=== PATIENT | female | born 2000 | race Two or more races ===

== ENCOUNTER 2021-12-05 07:28 | Day surgery (SDC) | payer MEDICAID ==
[~2021-12-05] VITALS: Ht 154.9 cm; Wt 50.8 kg
[2021-12-05] MEDS ORDERED: MIDAZOLAM HCL 2MG/2ML 2ml VIAL (1mg/ml) ONE (11:32)
[2021-12-05] MEDS ORDERED: fentaNYL CITRATE 100 MCG/2 ML VL ONE (11:32)
[2021-12-05] MEDS ORDERED: PROPOFOL 10 MG/ML 20 ML IV ONE (11:48)
[2021-12-05] MEDS ORDERED: ONDANSETRON HCL 4 MG/2 ML VIAL IV PRN (12:00)
[2021-12-05] MEDS ORDERED: HYDROmorphone HCL 2 MG/ML VL/or syr IV PRN (12:00)
[2021-12-05] MEDS ORDERED: ONDANSETRON HCL 4 MG/2 ML VIAL ONE (12:06)
[2021-12-05 12:55] VITALS: BP 104/64
== END 2021-12-05 12:59 | disposition home or self-care (01) ==
LOC: SUR 07:28
PROVIDERS: ATTEND Urology
DX: R30.0 Dysuria (principal); R35.0 Frequency of micturition; R39.15 Urgency of urination
CPT/HCPCS: 52000; 81025; C1769; J2250; J2405; J2704; J3010; J7030; U0003